=== PATIENT | female | born 1990 | race Hispanic/Latino ===

== ENCOUNTER 2019-02-23 06:00 | Inpatient (IN) | payer BC ==
[~2019-02-23] VITALS: Ht 177.8 cm; Wt 83.0 kg
[2019-02-23 06:25] LABS: APPEARANCE,URINE SL CLOUDY (CLEAR); BILIRUBIN,URINE SMALL (NEGATIVE); COLOR,URINE YELLOW (YELLOW); GLUCOSE, URINE (UA) NEGATIVE (NEGATIVE); KETONES,URINE 40 mg/dL (NEGATIVE); LEUKOCYTE ESTERASE ,URINE MODERATE (NEGATIVE); NITRATE,URINE NEGATIVE (NEGATIVE); OCCULT BLOOD,URINE NEGATIVE (NEGATIVE); PROTEIN,URINE TRACE mg/dL (NEGATIVE)
[2019-02-23 07:12] LABS: BACTERIA,URINE Moderate /HPF (None Seen); MUCUS,URINE Few LPF (None Seen); SQUAMOUS EPITHELIAL CELL,UR Moderate /HPF (0-2); WBC,URINE 51-100 /HPF (0-1)
[2019-02-23] MEDS ORDERED: LACTATED RINGERS 1000ML 1,000 ML IV PRN (07:38)
[2019-02-23] MEDS ORDERED: OXYTOCIN 10 USP UNITS/ML 20 UNIT in LACTATED RINGERS 1000ML 1,000 ML IV SCH (07:45)
[2019-02-23] MEDS ORDERED: OXYTOCIN-LR 20 UNITS/1000 ML 1,000 ML IV SCH ×2 (07:45→08:00)
[2019-02-23 08:40] LABS: HEMATOCRIT 33.8 % (36-48); MEAN CORPUSCULAR HEMOGLOBIN 33.8 pg (27.0-33.0); MEAN CORPUSCULAR HGB CONC 35.3 g/dL (32.0-36.0); MEAN CORPUSCULAR VOLUME 95.9 fL (79-99); NUCLEATED RED BLOOD CELLS 0.1 % (0.0-0.19); PLATELET COUNT (AUTO) 182 K/uL (130-400); RED BLOOD CELL COUNT(AUTO) 3.53 MIL/uL (4.00-5.50); RED CELL DISTRIBUTION WIDTH 12.5 % (11.0-15.5); WHITE BLOOD COUNT (AUTO) 10.7 K/uL (4.8-10.8)
[2019-02-23] MEDS ORDERED: MEPERIDINE-PF 50 MG/ML SYG ONE (08:50)
[2019-02-23] MEDS ORDERED: PROMETHAZINE HCL 25 MG/ML 1ML AMPULE IM SCH (09:00)
[2019-02-23] MEDS ORDERED: MEPERIDINE-PF 50 MG/ML SYG IVP SCH (09:00)
[2019-02-23] MEDS ORDERED: FLU VACC QS2019-20 36MOS UP/PF 60 MCG/0.5 ML ML IM SCH (09:00)
[2019-02-23 11:15] VITALS: BP 109/74
[2019-02-23] MEDS ORDERED: PREN-154 PO (11:39)
[2019-02-23] MEDS ORDERED: BENZOCAINE/LANOLIN/ALOE VERA 60 ML AEROSOL TP PRN (11:45)
[2019-02-23] MEDS ORDERED: FLU VACC QS2019-20 36MOS UP/PF 60 MCG/0.5 ML ML IM ONE (11:45)
[2019-02-23] MEDS ORDERED: LANOLIN 30GM OINTMENT TP PRN (11:45)
[2019-02-23] MEDS ORDERED: DIPH,PERTUSS(ACELL),TET VAC/PF 0.5 ML VIAL IM PRN (11:45)
[2019-02-23] MEDS ORDERED: ACETAMINOPHEN 325 MG TAB PO PRN (11:45)
[2019-02-23] MEDS ORDERED: WITCH HAZEL 1 PAD TP PRN (11:45)
[2019-02-23] MEDS: IBUPROFEN 600 MG TABLET PO PRN (16:41)
[2019-02-23 16:43] VITALS: BP 119/60
[2019-02-23 19:51] VITALS: BP 96/53
[2019-02-23] MEDS: DOCUSATE SODIUM 100 MG CAP PO SCH (21:22)
[2019-02-23 23:06] VITALS: BP 91/50
[2019-02-24 03:41] VITALS: BP 107/58
[2019-02-24 05:36] LABS: HEMATOCRIT 25.3 % (36-48); MEAN CORPUSCULAR HEMOGLOBIN 33.9 pg (27.0-33.0); MEAN CORPUSCULAR HGB CONC 35.7 g/dL (32.0-36.0); PLATELET COUNT (AUTO) 148 K/uL (130-400); RED BLOOD CELL COUNT(AUTO) 2.66 MIL/uL (4.00-5.50); RED CELL DISTRIBUTION WIDTH 12.3 % (11.0-15.5); WHITE BLOOD COUNT (AUTO) 8.3 K/uL (4.8-10.8)
[2019-02-24 07:14] LABS: HEPATITIS Bs ANTIGEN SCREEN P Negative (Negative)
[2019-02-24 07:35] VITALS: BP 98/61
--- NOTE | 2019-02-24 08:00 | NUR ---
PATIENT WAS DISCHARGED BY JERAMIE LAROSE CNM AND WILL FOLLOW UP IN CLINIC IN ONE WEEK.
[2019-02-24] MEDS: DOCUSATE SODIUM 100 MG CAP PO SCH (08:57)
[2019-02-24] MEDS: IBUPROFEN 600 MG TABLET PO PRN (09:01)
[2019-02-24 11:09] VITALS: BP 98/60
--- NOTE | 2019-02-24 13:00 | NUR ---
PATIENT WAS GIVEN DISCHARGE INSTRUCTIONS AT THIS TIME AND INSTRUCTED TO TAKE MOTRIN OVER THE COUNTER NEEDED FOR PAIN SINCE NO SCRIPT WAS ISSUED BY JERAMIE LAROSE CNM.
--- NOTE | 2019-02-24 14:30 | NUR ---
PATIENT WAS TAKEN VIA W/C TO [facility] [place]. [facility] STABLE AND [facility].
== END 2019-02-24 14:30 | disposition home or self-care (01) | DRG 807 ==
LOC: LDH 06:00 → OBSVTOIN 06:00 → WSH 11:15
PROVIDERS: ADMIT Obstetrics & Gynecology; ATTEND Obstetrics & Gynecology
PROC: 10E0XZZ Delivery of Products of Conception, External Approach (ICD-10-PCS; principal; 2019-02-23)
PROC: 10907ZC Drainage of Amniotic Fluid, Therapeutic from Products of Conception, Via Natural or Artificial Opening (ICD-10-PCS; 2019-02-23)
PROC: 3E0234Z Introduction of Serum, Toxoid and Vaccine into Muscle, Percutaneous Approach (ICD-10-PCS; 2019-02-23)
DX: O80 Encounter for full-term uncomplicated delivery (principal); Z37.0 Single live birth; Z3A.38 38 weeks gestation of pregnancy; Z23 Encounter for immunization
CPT/HCPCS: 36415; 81001; 85027; 86592; 86850; 86900; 86901; 87340; 90715; G0008; G0378; J2175; J2590